=== PATIENT | female | born 1930 | race Caucasian/White ===

== ENCOUNTER 2019-07-16 22:24 | Observation (INO) | payer MEDICARE, BC ==
[~2019-07-16] VITALS: Ht 167.6 cm; Wt 55.0 kg
[~2019-07-16 22:24] MED LIST: ACET325 PO; ACIDOPHILUS1 EAC2 PO; ASCO500 PO; GENPREOPSU RIGHTEYE; Ginkgo Biloba60 M1 PO; IRON150C PO; MULVITMIND PO; ONDA4ODT MM; Polysaccharide150 MG PO; SACC250C PO; [UNRECOGNIZED DRUG - OTHER] PO
[2019-07-16 22:41] LABS: BASOPHILS ABSOLUTE AUTO 0.08 K/mm3 (0.00-0.23); BASOPHILS PERCENT AUTO 1 % (0-2); EOSINOPHILS ABSOLUTE AUTO 0.34 K/mm3 (0.00-0.68); EOSINOPHILS PERCENT AUTO 4 % (0-6); Hematocrit 34.1 % (33.0-51.0); Hemoglobin 11.1 g/dL (11.5-16.0); IMMATURE GRAN ABSOLUTE AUTO 0.02 K/mm3 (0.00-0.10); IMMATURE GRAN PERCENT AUTO 0 % (0-1); LYMPHOCYTES ABSOLUTE AUTO 1.48 K/mm3 (0.84-5.20); LYMPHOCYTES PERCENT AUTO 19 % (21-46); MONOCYTES ABSOLUTE AUTO 0.78 K/mm3 (0.16-1.47); MONOCYTES PERCENT AUTO 10 % (4-13); Mean Corpuscular HGB Conc 32.6 g/dL (31.5-36.5); Mean Corpuscular Volume 102 fL (80-100); Mean Platelet Volume 9.3 fL (9.1-12.4); NEUTROPHILS ABSOLUTE AUTO 5.19 K/mm3 (1.96-9.15); NEUTROPHILS PERCENT AUTO 66 % (41-73); Platelet Count 250 K/mm3 (150-400); RDW Coefficient Variation 12.7 % (11.7-14.2); RDW Standard Deviation 47.6 fL (35.1-46.3); Red Blood Cell Count 3.36 M/mm3 (3.80-5.20); White Blood Cell Count 7.89 K/mm3 (4.00-11.30)
[2019-07-16] MEDS ORDERED: Pred Mild5 ML (22:52)
[2019-07-16 23:00] LABS: Alanine Aminotransfer (ALT/SGP 15 U/L (12-78); Albumin, Blood 3.2 g/dL (3.4-5.0); Albumin/Globulin Ratio 0.9 (0.8-1.8); Alk Phos 96 U/L (50-136); Anion Gap 3 mmol/L (6-16); Aspartate Aminotrans (AST/SGOT 10 U/L (12-37); Bilirubin, Total 0.2 mg/dL (0.1-1.0); Blood Urea Nitrogen 16 mg/dL (8-24); Bun/Creatinine Ratio 15.5 (12.0-20.0); CO2, Blood 30 mmol/L (21-32); Calcium, Blood 8.5 mg/dL (8.5-10.1); Chloride, Blood 104 mmol/L (98-108); Creatinine, Blood 1.03 mg/dL (0.40-1.00); Globulin, Blood 3.5 g/dL (2.2-4.0); Glomerular Filtration Rate 54 (60-); Glucose, Blood 110 mg/dL (70-99); Potassium, Blood 4.4 mmol/L (3.5-5.5); Sodium, Blood 137 mmol/L (136-145); Total Protein, Blood 6.7 g/dL (6.4-8.2); Troponin I <0.015 ng/mL (0.000-0.040)
[2019-07-16 23:07] LABS: Source, Urine Clean Catch
[2019-07-16 23:09] LABS: Bilirubin, Urine Neg (Neg); Blood, Urine 1+ (Neg); Glucose Qualitative, Urine Neg (Neg); Ketones, Urine Neg (Neg); Leukocyte Esterase, Urine 3+ (Neg); Nitrite, Urine Neg (Neg); Protein, Urine 2+ (Neg); Urobilinogen, Urine NORM (Normal)
[2019-07-16 23:16] LABS: Appearance, Urine Clear (Clear); Bacteria Many /hpf; Color, Urine Yellow (P-Yellow); Red Blood Cells, Urine 0-2 /hpf (0-2); Squamous Epithelial Cells Not Seen /hpf (Few); White Blood Cells, Urine 50-100 /hpf (0-5)
--- NOTE | 2019-07-17 07:50 | NUR ---
SHIFT SUMMARY PT NEW ADMIT THIS SHIFT. NONVERBAL/OPENS EYES TO LOUD VERBAL STIMULI + PHYSICAL TOUCH. 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 PT RESTED WELL T/O NIGHT. IVF + ABX INFUSING PER ORDERS. REDNESS NOTED TO COCCYX, TURN Q2H + PILLOWS PLACED UNDER COCCYX. DAUGHTER IN LAW AT BEDSIDE T/O NIGHT, LOVING + ATTENTIVE. CALL LIGHT WITHIN DAUGHTER'S REACH + BED ALARM ON HIGH SENSITIVITY FOR SAFETY. PT CONTINUES TO RESTING THIS AM WITH NADN. REPORT TO DAY SHIFT RN.
--- NOTE | 2019-07-17 08:45 | NUR ---
PATIENT SLEEPING. NO S/SX DISTRESS NOTED. RESP E/U. DIL IN ROOM.
--- NOTE | 2019-07-17 10:39 | NUR ---
PATIENT CONT TO SLEEP W/O S/SX DISTRESS. DIL AT BEDSIDE, STATES PATIENT USUALLY AWAKENS AROUND 11 OR [address] HERE TO [place], WILL RETURN THIS AFTERNOON. DAUGHTER (POA) IS TO ARRIVE THIS AFTERNOON.
--- NOTE | 2019-07-17 15:33 | NUR ---
echocardiogram completed
--- NOTE | 2019-07-17 16:30 | NUR ---
DAUGHTER HERE, ASSISTED PATIENT WITH LUNCH; TOOK 100%. PALLIATIVE CARE NURSE IN ROOM, TALKING WITH DAUGHTER. PATTIENT HAS REMAINED NON VERBAL WITH THIS RN, ABLE TO FOLLOW COMMANDS AND SBA TO CHAIR. INCONTINENT OF URINE, ATTENDS CHANGED.
--- NOTE | 2019-07-17 17:29 | NUR ---
Initial Visit: Palliative Care Consult for AD/POLST and Advanced Care Planning. Pt is sitting in chair eating dinner. Daughter present cueing Pt with eating. Pt is non verbal and appears comfortable with no S/S of distress. Engaged in therapeutic discussion with Pt's daughter Aurora (MPOA) regarding Advanced Care Planning. Aurora reports living in [place]. She reports being Pt's primary caregiver at one point but became to anxious and stressed providing care for her mother. Currently Pt lives with her brother and sister in law. Sister in law is Pt's current primary caregiver due to Pt's son working. Aurora reports at baseline Pt is able to ambulate with walker with contact guard. Pt requires assistance with bathing and dressing. Pt will experience occasional incontinence of bladder. Aurora had discussion with admitting provider regarding code status and Pt was made DNR. Discussed completing POLST. Educated on life sustaining measures including risk factors. Aurora feels Pt should be DNR and receive limited treatment but reports plan to discuss with her brother before completing POLST. Educated on disease process and the importance of planning for the future as disease process takes it coarse. Discussed hospice as an option at somepoint in disease process. Discussed caregiver stress and the importance of planning for the possibility of needing a higher level of care. Discussed sister in law discussing caregiver stress with [facility]. Aurora expresses appreciation of visit and discussions. No other concerns reported at this time. Spoke with bedside RN Rubina and discussed case. Spoke with Caremanrufino Tamayo and discussed case. Palliative Care will remain available.
--- NOTE | 2019-07-17 18:25 | NUR ---
SHIFT SUMMARY PATIENT UP TO CHAIR WITH ONE PERSON ASSIST, BEARS WEIGHT WELL. DAUGHTER FED PATIENT PUREED LUNCH AND DINNER, APPETITE GOOD. INCONTINENT OF URINE, ATTENDS IN PLACE. PATIENT CONT TO BE NON VERBAL WITH STAFF, BUT FOLLOWS COMMANDS. NO S/SX DISCOMFORT NOTED. PALLIATIVE CARE RN IN TO SPEAK WITH DAUGHTER THIS AFTERNOON, D/C JOINERY SETTER OUT UPDATED. WILL REPORT TO NOC RN.
[2019-07-18 04:58] LABS: Hematocrit 30.4 % (33.0-51.0); Hemoglobin 9.9 g/dL (11.5-16.0); Mean Corpuscular HGB 32.9 pg (26.0-34.0); Mean Corpuscular HGB Conc 32.6 g/dL (31.5-36.5); Mean Corpuscular Volume 101 fL (80-100); Mean Platelet Volume 9.6 fL (9.1-12.4); Platelet Count 215 K/mm3 (150-400); RDW Coefficient Variation 12.5 % (11.7-14.2); RDW Standard Deviation 46.6 fL (35.1-46.3); Red Blood Cell Count 3.01 M/mm3 (3.80-5.20); White Blood Cell Count 5.45 K/mm3 (4.00-11.30)
[2019-07-18 05:16] LABS: Albumin, Blood 2.7 g/dL (3.4-5.0); Anion Gap 5 mmol/L (6-16); Blood Urea Nitrogen 15 mg/dL (8-24); Bun/Creatinine Ratio 20.9 (12.0-20.0); CHOL/HDL RATIO 3.1; CO2, Blood 27 mmol/L (21-32); Calcium, Blood 8.3 mg/dL (8.5-10.1); Chloride, Blood 109 mmol/L (98-108); Cholesterol 170 mg/dL (50-200); Creatinine, Blood 0.72 mg/dL (0.40-1.00); Glomerular Filtration Rate >60 (60-); Glucose, Blood 82 mg/dL (70-99); HDL Cholesterol 55 mg/dL (>39); LDL/HDL RATIO 1.8; Low Density Lipoprotein Chol 102 mg/dL (0-110); Phosphorus, Blood 3.5 mg/dL (2.5-4.9); Potassium, Blood 4.1 mmol/L (3.5-5.5); Sodium, Blood 141 mmol/L (136-145); Triglycerides 67 mg/dL (30-160); Very Low Density Lipoprot Chol 13 mg/dL (6-32)
--- NOTE | 2019-07-18 06:38 | NUR ---
SHIFT SUMMARY PATIENT'S DAUGHTER STAYED THE NIGHT AND SLEP IN A RECLINER CHAIN. PATIENT GOT BACK INTO BED AT APPROXIMATELY 2145 AND SLEPT THROUGHOUT THE NIGHT. NO ACUTE CHANGES.
[2019-07-18] MEDS ORDERED: ASPI81CH PO (12:58)
[2019-07-18] MEDS ORDERED: CEFU500T30 (12:59)
[2019-07-18] MEDS ORDERED: CEFU500T30 PO (13:00)
--- NOTE | 2019-07-18 14:21 | NUR ---
PATIENT D/C'D HOME WITH DAUGHTER AT THIS TIME. DAUGHTER STATES UNDERSTANDING OF MEDS, F/U APPT, DIET, ETC. D/C SKATE BOARDER SPOKE WITH DAUGHTER AT LENGTH RE: CARE OPTIONS. NO ACUTE CHANGES OR S/SX DISCOMFORT NOTED.
== END 2019-07-18 14:25 | disposition home or self-care (01) ==
LOC: ER 22:24 → SURS 22:25 → ER 07-17 01:26 → SURS 07-17 01:26
PROVIDERS: Emergency Medicine; Internal Medicine; ADMIT Internal Medicine
DX: G30.9 Alzheimer's disease, unspecified (principal); R55 Syncope and collapse; H57.9 Unspecified disorder of eye and adnexa; I34.0 Nonrheumatic mitral (valve) insufficiency; F02.80 Dementia in other diseases classified elsewhere, unspecified severity, without behavioral disturbance, psychotic disturbance, mood disturbance, and anxiety; N18.3 Chronic kidney disease, stage 3 (moderate); N39.0 Urinary tract infection, site not specified; I87.2 Venous insufficiency (chronic) (peripheral); K59.09 Other constipation; E44.0 Moderate protein-calorie malnutrition; Z87.440 Personal history of urinary (tract) infections; Z79.899 Other long term (current) drug therapy
CPT/HCPCS: 36415; 70450; 71045; 80053; 80061; 80069; 81001; 83605; 84484; 85025; 85027; 87040; 87070; 87077; 87086; 87147; 87186; 87205; 92610; 93306; 93880; 96374; 96376; 97116; 97162; 97166; 97530; 97535; 99285-25; G0378; J0696; J7030; P9612

== ENCOUNTER 2020-11-11 19:00 | Emergency (ER) | payer MEDICARE, BC ==
[~2020-11-11] VITALS: Ht 162.6 cm; Wt 54.4 kg
[~2020-11-11 19:00] MED LIST changes: +ASPI81CH PO; +CEFU500T30; +CEFU500T30 PO; +Pred Mild5 ML
[2020-11-11 23:12] LABS: BASOPHILS ABSOLUTE AUTO 0.05 K/mm3 (0.00-0.23); BASOPHILS PERCENT AUTO 0 % (0-2); EOSINOPHILS ABSOLUTE AUTO 0.05 K/mm3 (0.00-0.68); EOSINOPHILS PERCENT AUTO 0 % (0-6); Hematocrit 31.2 % (33.0-51.0); Hemoglobin 10.5 g/dL (11.5-16.0); IMMATURE GRAN ABSOLUTE AUTO 0.06 K/mm3 (0.00-0.10); IMMATURE GRAN PERCENT AUTO 0 % (0-1); LYMPHOCYTES ABSOLUTE AUTO 1.44 K/mm3 (0.84-5.20); LYMPHOCYTES PERCENT AUTO 10 % (21-46); MONOCYTES ABSOLUTE AUTO 1.06 K/mm3 (0.16-1.47); MONOCYTES PERCENT AUTO 8 % (4-13); Mean Corpuscular HGB 31.9 pg (26.0-34.0); Mean Corpuscular HGB Conc 33.7 g/dL (31.5-36.5); Mean Corpuscular Volume 95 fL (80-100); Mean Platelet Volume 9.1 fL (9.1-12.4); NEUTROPHILS ABSOLUTE AUTO 11.21 K/mm3 (1.96-9.15); NEUTROPHILS PERCENT AUTO 81 % (41-73); Platelet Count 335 K/mm3 (150-400); RDW Coefficient Variation 12.9 % (11.7-14.2); RDW Standard Deviation 44.9 fL (35.1-46.3); Red Blood Cell Count 3.29 M/mm3 (3.80-5.20); White Blood Cell Count 13.87 K/mm3 (4.00-11.30)
[2020-11-11 23:22] LABS: Anion Gap 6 mmol/L (6-16); Blood Urea Nitrogen 11 mg/dL (8-24); CO2, Blood 26 mmol/L (21-32); Calcium, Blood 8.1 mg/dL (8.5-10.1); Chloride, Blood 96 mmol/L (98-108); Creatinine, Blood 0.53 mg/dL (0.40-1.00); Glomerular Filtration Rate >60 (60-); Glucose, Blood 97 mg/dL (70-99); Potassium, Blood 4.2 mmol/L (3.5-5.5); Sodium, Blood 128 mmol/L (136-145)
== END 2020-11-12 01:36 | disposition home or self-care (01) ==
LOC: ER 19:00
PROVIDERS: Student in an Organized Health Care Education/Training Program
DX: E87.1 Hypo-osmolality and hyponatremia (principal); Z79.82 Long term (current) use of aspirin; Z79.899 Other long term (current) drug therapy
CPT/HCPCS: 36415; 71045; 80048; 85025; 99283-25; J7030